=== PATIENT | female | born 1995 | race Caucasian/White ===

== ENCOUNTER 2019-01-14 06:30 | Inpatient (IN) ==
[~2019-01-14 06:30] MED LIST: D5 1/2 NS 1000 ML 1,000 ML IV SCH; D5LR 1L W PITOCIN 10 UNITS/L 10 UNITS/1,000 ML BAG IV PRN; MORPHINE SULFATE INJ 2 MG INJ IVP PRN; NUBAIN INJ 200 MG VIAL MULTIDOSE IVP PRN; PHENERGAN INJ 25 MG IM PRN; PITOCIN IVP ONE; REGLAN INJ 10 MG VIAL IVP PRN
[2019-01-14] MEDS ORDERED: D5LR 1L W PITOCIN 10 UNITS/L 10 UNITS/1,000 ML BAG IV ONE (06:37)
[2019-01-14] MEDS ORDERED: D5 1/2 NS 1000 ML 1,000 ML IV ONE (06:38)
[2019-01-14] MEDS ORDERED: D5LR 1L W PITOCIN 10 UNITS/L 10 UNITS/1,000 ML BAG IV PRN (07:00)
[2019-01-14] MEDS ORDERED: D5 1/2 NS 1000 ML 1,000 ML IV SCH (07:00)
--- NOTE | 2019-01-14 07:23 | DR.OB ---
OB Quick Note - Assessment/Plan Assessment/Plan: L&D 01/14/19 at 7:15am S-No complaint. O-Afebrile,VSS FZQ=013 with good LTV, +accel, no decel. CTX=none CVX=1cm/50%/-1/VTX AROM with clear fluid. IUPC placed. A-IUP at 39 0/7 weeks for induction Rh- P-Begin pitocin induction Anticipate
[2019-01-14] MEDS ORDERED: REGLAN INJ 10 MG VIAL IVP PRN ×3 (08:33→18:26)
[2019-01-14] MEDS ORDERED: PITOCIN IVP ONE (08:33)
[2019-01-14] MEDS ORDERED: NUBAIN INJ 200 MG VIAL MULTIDOSE IVP PRN (08:33)
[2019-01-14] MEDS ORDERED: MORPHINE SULFATE INJ 2 MG INJ IVP PRN (08:33)
[2019-01-14] MEDS ORDERED: PHENERGAN INJ 25 MG IM PRN ×2 (08:33→18:16)
--- NOTE | 2019-01-14 11:49 | DR.OB ---
OB Quick Note - Assessment/Plan Assessment/Plan: L&D 01/14/19 at 11:40am Pitocin=14mu/min. S-No complaint. O-Afebrile,VSS GTK=505 with good LTV, +accel, no decel. CTX=q 1 1/2 to 2 min., about 55-65mmHg CVX=1cm/75%/-1/VTX A-IUP at 39 0/7 weeks for induction Rh- P-Cont. pitocin induction Rh-
[2019-01-14] MEDS ORDERED: LR 1000 ML IV 1,000 ML IV ONE ×5 (12:24→17:17)
[2019-01-14] MEDS ORDERED: NAROPIN EPIDURAL 0.2% + FENTANYL 90MCG 60 ML EPI ONE (13:36)
[2019-01-14] MEDS ORDERED: FENTANYL INJ 100 mcg ONE (13:37)
[2019-01-14] MEDS ORDERED: PITOCIN ONE (14:04)
[2019-01-14] MEDS ORDERED: EPHEDRINE SULFATE INJ ONE (14:04)
[2019-01-14] MEDS ORDERED: XYLOCAINE 2 % (PLAIN) ONE (14:04)
[2019-01-14] MEDS ORDERED: ZOFRAN INJ 4 MG VIAL ONE (14:04)
[2019-01-14] MEDS ORDERED: DIPRIVAN VIAL ONE (14:04)
[2019-01-14] MEDS ORDERED: DILAUDID INJ ONE (16:20)
[2019-01-14] MEDS ORDERED: XYLOCAINE 2% and EPINEPHRINE 1:100,000 ONE (16:20)
[2019-01-14] MEDS ORDERED: D5 1/2 NS 1L W PITOCIN 20 UNITS/L 20 UNITS/1,000 ML BAG IV ONE (16:29)
[2019-01-14] MEDS ORDERED: ANCEF VIAL 1 GRAM ONE (16:33)
--- NOTE | 2019-01-14 16:52 | DR.OB ---
OB Quick Note - Assessment/Plan Assessment/Plan: L&D 01/14/19 at 4:30pm S-No complaint. O-Afebrile,VSS DQN=328 with good LTV, +accel, no decel. CTX=q 1 1/2 to 2 min., about 55-65mmHg CVX=1cm/75%/-1 (no change) A-IUP at 39 0/7 weeks with failure to dilate P-To C/S
[2019-01-14] MEDS ORDERED: ZOFRAN INJ 4 MG VIAL IVP PRN ×2 (18:16→18:26)
[2019-01-14] MEDS ORDERED: BENADRYL INJ 50 MG VIAL IVP PRN (18:16)
[2019-01-14] MEDS ORDERED: PERCOCET TAB 5/325 MG PO PRN (18:26)
[2019-01-14] MEDS ORDERED: TORADOL 30 MG VIAL IVP PRN (18:26)
[2019-01-14] MEDS ORDERED: NARCAN INJ IVP PRN (18:26)
[2019-01-14] MEDS ORDERED: HYPERRHO S/D (or RHOGAM) IM PRN (18:43)
[2019-01-14] MEDS ORDERED: ADACEL or BOOSTRIX TDaP VACCINE IM ONE (18:43)
[2019-01-14] MEDS ORDERED: MYLICON TAB 80 MG CHEW PO PRN (18:43)
[2019-01-14] MEDS ORDERED: D5 1/2 NS 1000 ML 1,000 ML with PITOCIN 20 UNITS IV SCH ×2 (19:00)
[2019-01-14] MEDS: NS 100 ML IV 100 ML IV ONE (20:02)
[2019-01-14] MEDS: ZANTAC PO SCH (20:33)
[2019-01-15] MEDS ORDERED: TORADOL 30 MG VIAL IVP PRN (01:24)
[2019-01-15] MEDS ORDERED: TORADOL 30 MG VIAL ONE (01:32)
[2019-01-15 04:14] LABS: HEMATOCRIT 20.9 % (36.0-47.0)
[2019-01-15 04:15] LABS: HEMOGLOBIN 7.2 g/dL (12.0-16.0)
[2019-01-15] MEDS ORDERED: HYPERRHO S/D (or RHOGAM) IM ONE (07:36)
[2019-01-15] MEDS: PERCOCET TAB 5/325 MG PO PRN ×4 (08:32→22:59)
[2019-01-15] MEDS: PRENATAL PLUS PO SCH (08:32)
[2019-01-15] MEDS: COLACE CAP 100 MG PO SCH ×2 (08:32→20:56)
[2019-01-15] MEDS: ZANTAC PO SCH ×2 (08:32→20:56)
[2019-01-15] MEDS: BACTROBAN CREAM TOP SCH ×2 (14:38→21:00)
[2019-01-15] MEDS: MOTRIN TAB 800 MG PO PRN (14:39)
[2019-01-15 15:12] LABS: HEMATOCRIT 20.6 % (36.0-47.0); HEMOGLOBIN 7.3 g/dL (12.0-16.0)
[2019-01-15] MEDS: FERROUS GLUCONATE PO SCH (17:46)
[2019-01-15] MEDS: NS 100 ML IV 100 ML IV ONE (18:44)
[2019-01-16] MEDS: MOTRIN TAB 800 MG PO PRN ×2 (00:03→11:37)
[2019-01-16] MEDS: BACTROBAN CREAM TOP SCH (05:03)
[2019-01-16] MEDS: FERROUS GLUCONATE PO SCH (06:06)
[2019-01-16] MEDS: PERCOCET TAB 5/325 MG PO PRN ×2 (07:24→12:56)
[2019-01-16] MEDS: COLACE CAP 100 MG PO SCH (08:52)
[2019-01-16] MEDS: PRENATAL PLUS PO SCH (08:52)
[2019-01-16] MEDS: ZANTAC PO SCH (08:52)
[2019-01-16 10:07] VITALS: BP 113/66
== END 2019-01-16 13:05 | disposition home or self-care (01) | DRG 788 ==
LOC: LD 06:42 → MED/SURG 18:44
PROVIDERS: ADMIT Specialist; ATTEND Specialist
DX: O62.0 Primary inadequate contractions; Z3A.39 39 weeks gestation of pregnancy; O36.0930 Maternal care for other rhesus isoimmunization, third trimester, not applicable or unspecified; Z37.0 Single live birth
CPT/HCPCS: 36415; 85014; 85018; 85461; 86850; 86900; 86901; A4216; A4222; S0197; J0690; J1170; J1885; J2001; J2405; J2590; J2704; J2790; J3010; J3490; J7050; J7120; S5010